=== PATIENT | male | born 1960 | race Caucasian/White ===

== ENCOUNTER → 2017-04-22 | Outpatient (CLI) | payer BC ==
[~2017-04-22] MED LIST: ASPI-555 PO; GABA-318 PO; LISI-613 PO; TAMS-1 PO; TRIA1CAP2 PO
== END | disposition home or self-care (01) ==
LOC: OIH 08:21
PROVIDERS: ATTEND Neurological Surgery
DX: M47.892 Other spondylosis, cervical region (principal); Z98.890 Other specified postprocedural states
CPT/HCPCS: 72040

== ENCOUNTER 2018-03-31 22:41 | Emergency (ER) | payer BC, OTHER ==
[2018-04-01 00:01] LABS: BASOPHILS % (AUTO) 0.7 % (0.0-5.0); EOSINOPHILS % (AUTO) 0.1 % (0.0-8.0); HEMATOCRIT 37.9 % (42-54); LYMPHOCYTES % (AUTO) 11.6 % (21.0-51.0); MEAN CORPUSCULAR HEMOGLOBIN 30.7 pg (27.0-33.0); MEAN CORPUSCULAR VOLUME 90.3 fL (79-99); MONOCYTES % (AUTO) 6.8 % (3.0-13.0); NEUTROPHILS % (AUTO) 80.8 % (40.0-77.0); PLATELET COUNT (AUTO) 185 K/uL (130-400); WHITE BLOOD COUNT (AUTO) 9.3 K/uL (4.8-10.8)
[2018-04-01 00:09] LABS: CREATININE 1.3 mg/dL (0.5-1.5); POTASSIUM 3.9 mmol/L (3.5-5.1)
[2018-04-01 00:14] LABS: ALBUMIN 3.5 g/dL (3.5-5.0); BILIRUBIN,TOTAL 0.3 mg/dL (0.2-1.0); TOTAL PROTEIN, SERUM 7.2 g/dL (6.0-8.3)
[2018-04-01 00:40] LABS: APPEARANCE,URINE Clear (CLEAR); BILIRUBIN,URINE Negative (NEGATIVE); COLOR,URINE Yellow (YELLOW); GLUCOSE, URINE (UA) Negative (NEGATIVE); KETONES,URINE Negative (NEGATIVE); LEUKOCYTE ESTERASE ,URINE Negative (NEGATIVE); NITRATE,URINE Negative (NEGATIVE); OCCULT BLOOD,URINE Negative (NEGATIVE); PROTEIN,URINE Negative (NEGATIVE); UROBILINOGEN,URINE 0.2 mg/dL (0.2-1.0)
[2018-04-01] MEDS ORDERED: AZITHROMYCIN 250 MG TABLET PO ONE (01:03)
== END 2018-04-01 01:18 | disposition home or self-care (01) ==
LOC: EDH 22:41
DX: E86.0 Dehydration (principal); J02.9 Acute pharyngitis, unspecified; I10 Essential (primary) hypertension
CPT/HCPCS: 36415; 80053; 81003; 85025; 87040; 87804; 87880; 96360

== ENCOUNTER → 2020-05-12 | Outpatient (CLI) | payer BC, OTHER ==
[~2020-05-12] MED LIST changes: -ASPI-555 PO; +ASPI-556 PO; -GABA-318 PO; +GABA600T10 PO
== END | disposition home or self-care (01) ==
LOC: RAH 08:56
PROVIDERS: ATTEND Neurological Surgery
DX: M50.30 Other cervical disc degeneration, unspecified cervical region (principal); M43.22 Fusion of spine, cervical region
CPT/HCPCS: 72040

== ENCOUNTER 2020-10-15 07:48 | Day surgery (SDC) | payer OTHER ==
[2020-10-09 10:03] LABS: BASOPHILS % (AUTO) 0.4 % (0.0-5.0); EOSINOPHILS % (AUTO) 1.2 % (0.0-8.0); HEMATOCRIT 44.3 % (42-54); LYMPHOCYTES % (AUTO) 30.6 % (21.0-51.0); MEAN CORPUSCULAR HGB CONC 33.4 g/dL (32.0-36.0); MEAN CORPUSCULAR VOLUME 92.7 fL (79-99); MONOCYTES % (AUTO) 7.2 % (3.0-13.0); NEUTROPHILS % (AUTO) 60.4 % (40.0-77.0); PLATELET COUNT (AUTO) 236 K/uL (130-400); RED BLOOD CELL COUNT(AUTO) 4.78 MIL/uL (4.50-6.20); RED CELL DISTRIBUTION WIDTH 13.5 % (11.0-15.5); WHITE BLOOD COUNT (AUTO) 5.7 K/uL (4.8-10.8)
[2020-10-09 10:11] LABS: CREATININE 1.1 mg/dL (0.5-1.5); POTASSIUM 5.2 mmol/L (3.5-5.1)
[2020-10-14 14:50] VITALS: BP 120/77
[2020-10-15] VITALS (11 sets, daily range): BP systolic 112–129; BP diastolic 68–80
[~2020-10-15] VITALS: Ht 170.2 cm; Wt 82.6 kg
[~2020-10-15 07:48] MED LIST changes: -ASPI-556 PO; +LEVO75CA5 PO; -LISI-613 PO; +METO25TA6 PO
[2020-10-15] MEDS ORDERED: LACTATED RINGERS 1000ML 1,000 ML IV ONE (08:16)
[2020-10-15] MEDS: CEFAZOLIN SODIUM 1 GM VIAL IVP SCH ×2 (08:30→12:00)
[2020-10-15] MEDS ORDERED: LIDOCAINE PF 100MG/5ML (2%) SYRINGE 5ML ONE (11:33)
[2020-10-15] MEDS ORDERED: ONDANSETRON 4MG INJ ONE (11:34)
[2020-10-15] MEDS ORDERED: PROPOFOL 10 MG/ML 20ML VIAL IV ONE (11:34)
[2020-10-15] MEDS ORDERED: MIDAZOLAM HCL 1 MG/ML 2ML VIAL ONE (11:34)
[2020-10-15] MEDS ORDERED: ROCURONIUM 10MG/1ML SYR 10 MG/ML ML ONE ×2 (11:34→12:35)
[2020-10-15] MEDS ORDERED: ROPIVACAINE 0.5% 5MG/ML 30ML IJ ONE (11:38)
[2020-10-15] MEDS ORDERED: FENTANYL CITRATE PF 50 MCG/1 ML 2ML VIAL ONE ×2 (11:39→14:42)
[2020-10-15] MEDS ORDERED: PHENYLEPHRINE HCL 10 MG/ML 1ML VIAL IV ONE ×2 (11:58→14:48)
[2020-10-15] MEDS ORDERED: EPINEPHRINE 1 MG/ML 30ML VIAL IJ ONE (12:30)
[2020-10-15] MEDS ORDERED: EPHEDRINE SULFATE 50 MG/ML AMPULE ONE (12:51)
[2020-10-15] MEDS ORDERED: GLYCOPYRROLATE 1 MG/5 ML SYRINGE ONE (15:08)
[2020-10-15] MEDS ORDERED: NEOSTIGMINE 5MG/5ML SYR IV ONE (15:09)
[2020-10-15] MEDS ORDERED: IBUP-2070 PO (15:17)
[2020-10-15] MEDS ORDERED: CEPH500B PO (15:17)
[2020-10-15] MEDS ORDERED: HYDR-4060 PO (15:17)
== END 2020-10-15 17:00 | disposition home or self-care (01) ==
LOC: DAH 07:48
PROVIDERS: ATTEND Orthopaedic Surgery
DX: S46.011A Strain of muscle(s) and tendon(s) of the rotator cuff of right shoulder, initial encounter (principal); Z20.822 Contact with and (suspected) exposure to COVID-19; S43.431A Superior glenoid labrum lesion of right shoulder, initial encounter; I10 Essential (primary) hypertension; E78.2 Mixed hyperlipidemia; E03.9 Hypothyroidism, unspecified; Z82.49 Family history of ischemic heart disease and other diseases of the circulatory system; Z72.89 Other problems related to lifestyle; Z79.899 Other long term (current) drug therapy; X58.XXXA Exposure to other specified factors, initial encounter; Y93.89 Activity, other specified; Y92.89 Other specified places as the place of occurrence of the external cause; Z79.82 Long term (current) use of aspirin
CPT/HCPCS: 29807; 29826; 29827; 36415; 64415; 76942; 80048; 85025; 87635; A4215; A4216; A4221; A4222; A4223 ×3; A4565; A4606; A4649 ×6; A4663; A4930 ×2; A6204; C1713 ×3; C9803; G0168; J0171; J0690; J2001; J2250; J2370 ×2; J2405; J2704; J2710; J2795; J3010 ×2; J3490 ×2; J7030; J7120